=== PATIENT | female | born 2000 ===

== ENCOUNTER 2022-08-13 06:03 | Inpatient (IN) ==
[2022-08-13] MEDS ORDERED: FAMOTIDINE 20 MG/2 ML VIAL IV ONE (06:15)
[2022-08-13] MEDS ORDERED: miSOPROStoL 200 MCG TABLET RECTAL PRN (06:15)
[2022-08-13] MEDS ORDERED: OXYTOCIN/LR 20 UNIT/1,000 ML BAG IV ONE ×3 (06:15→18:45)
[2022-08-13] MEDS ORDERED: CITRIC ACID/SODIUM CITRATE 30 ML UDCUP PO ONE (06:15)
[2022-08-13] MEDS ORDERED: CARBOPROST TROMETHAMINE 250 MCG/ML AMP IM PRN (06:15)
[2022-08-13] MEDS ORDERED: TRANEXAMIC ACID 1,000 MG in SODIUM CHLORIDE 0.9% 100 ML IV PRN (06:15)
[2022-08-13] MEDS ORDERED: METHYLERGONOVINE 0.2 MG/1 ML AMP IM PRN (06:15)
[2022-08-13] MEDS ORDERED: OXYTOCIN/LR 30 UNIT/1,000 ML BAG IV ONE ×2 (06:15→10:11)
[2022-08-13] MEDS ORDERED: OXYTOCIN 10 UNIT/ML VIAL IM ONE (06:15)
[2022-08-13] MEDS ORDERED: LACTATED RINGERS 1,000 ML IV SCH ×2 (06:30→10:00)
[2022-08-13 06:45] LABS: Basophils % 0.2 % (0.0-0.8); Eosinophils % 0.1 % (0.00-10.9); Hematocrit 31.7 VOL% (35.7-47.0); Hemoglobin 10.7 GM/DL (12.0-16.0); Immature Granulocytes % 2.1 %; Immature Granulocytes Absolute 0.27 #; Lymphocytes # 2.2 10*3/uL (1.4-4.0); Lymphocytes % 17.4 % (21.3-54.2); Mean Corpuscular HGB Conc 33.8 GM/DL (32-36); Mean Corpuscular Volume 92.4 FL (87-102); Mean Platelet Volume 10.8 FL (9.6-12.0); Monocytes # 0.9 10*3/uL (0.11-0.8); Monocytes % 7.3 % (1.7-12.7); NRBC # 0.02 10*3/uL; Neutrophils % 72.9 % (38.7-73.9); Platelet Count 282 T/CUMM (130-400); Red Blood Count 3.43 MC/CUMM (3.8-5.5); Red Cell Distribution Width 13.3 % (9.3-17.3); White Blood Count 12.7 T/CUMM (4-12)
[2022-08-13 06:58] LABS: Alanine Aminotransferase 39 U/L (13-56); Albumin 2.5 G/DL (3.4-5.0); Alkaline Phosphatase 188 U/L (45-117); Aspartate Amino Transferase 58 U/L (0-37); Bilirubin,Total < 0.39 MG/DL (0.20-1.00); Blood Urea Nitrogen 11 MG/DL (7-18); Calcium 8.4 MG/DL (8.5-10.1); Carbon Dioxide 17 MMOL/L (21-32); Chloride 112 MMOL/L (98-107); Glucose 97 MG/DL (74-106); Osmolality,Calculated 275.5 MOS/KG (273-304); Potassium 4.1 MMOL/L (3.5-5.1); Sodium 139 MMOL/L (136-145); Total Protein 6.9 G/DL (6.4-8.2)
[2022-08-13] MEDS ORDERED: TRANEXAMIC ACID 1,000 MG/10 ML VIAL ONE (07:05)
[2022-08-13] MEDS ORDERED: miSOPROStoL 200 MCG TABLET ONE (07:05)
[2022-08-13] MEDS ORDERED: CARBOPROST TROMETHAMINE 250 MCG/ML AMP IM ONE (07:06)
[2022-08-13] MEDS ORDERED: METHYLERGONOVINE 0.2 MG/1 ML AMP ONE (07:06)
[2022-08-13] MEDS ORDERED: SODIUM CHLORIDE 0.9% 0 ML IV ONE (07:06)
[2022-08-13] MEDS ORDERED: INFLUENZA VIRUS VACCINE 0.5 ML SYRINGE IM ONE ×2 (07:10→07:30)
[2022-08-13] MEDS ORDERED: ACETAMINOPHEN INJ 1,000 MG/100 ML VIAL IV ONE (07:11)
[2022-08-13] MEDS ORDERED: ONDANSETRON 4 MG/2 ML VIAL ONE (07:11)
[2022-08-13] MEDS ORDERED: buprenorphine HCL 0.3 MG/ML VIAL ONE (07:11)
[2022-08-13] MEDS ORDERED: KETOROLAC 30 MG/1 ML VIAL ONE (07:11)
[2022-08-13] MEDS ORDERED: DEXAMETHASONE 4 MG/1 ML VIAL ONE ×3 (07:13→09:29)
[2022-08-13] MEDS ORDERED: ceFAZolin 3,000 MG in SYRINGE 1 EACH IV ONE (07:30)
[2022-08-13] MEDS ORDERED: LACTATED RINGERS 1,000 ML IV ONE (09:30)
[2022-08-13 09:38] LABS: Glucose,Urine (UA) Negative (Negative); Mucus,Urine Occasional /LPF (Occasional); Protein,Urine Trace mg/dL (Negative); RBC,Urine <1 /HPF (0-4); Squamous Epithelial Cell,Urine Occasional /HPF (0-10); Urine Appearance Clear (Clear); Urine Color Yellow (Yellow)
[2022-08-13 09:39] LABS: Bilirubin,Urine Negative (Negative); Blood, Urine Negative (Negative); Ketones,Urine Negative (Negative); Nitrite,Urine Negative (Negative); Urine Urobilinogen 0.2 eU/dL (<2.0)
[2022-08-13 09:42] LABS: Cord Venous Blood PCO2 46.7 MMHG; Cord Venous Blood PO2 41.2
[2022-08-13 09:48] LABS: Cord Arterial Blood HCO3 18.1 MMOL/L
[2022-08-13] MEDS ORDERED: RHO(D) IMMUNE GLOBULIN 300 MCG SYRINGE IM ONE (09:49)
[2022-08-13] MEDS ORDERED: IBUPROFEN 800 MG TABLET PO PRN (09:49)
[2022-08-13] MEDS ORDERED: MAGNESIUM HYDROXIDE SUSP 30 ML UDCUP PO PRN (09:49)
[2022-08-13] MEDS ORDERED: ACETAMINOPHEN 325 MG TABLET PO PRN (09:49)
[2022-08-13] MEDS ORDERED: ONDANSETRON 4 MG/2 ML VIAL IV PRN (09:49)
[2022-08-13 09:51] LABS: Cord Venous Blood HCO3 18.9 MMOL/L; Cord Venous Blood PCO2 46.1 MMHG; Cord Venous Blood PO2 41.1
[2022-08-13 13:10] LABS: Basophils % 0.2 % (0.0-0.8); Hematocrit 28.4 VOL% (35.7-47.0); Hemoglobin 9.4 GM/DL (12.0-16.0); Immature Granulocytes % 1.7 %; Lymphocytes # 1.9 10*3/uL (1.4-4.0); Lymphocytes % 11.1 % (21.3-54.2); Mean Corpuscular HGB Conc 33.1 GM/DL (32-36); Mean Corpuscular Volume 91.9 FL (87-102); Mean Platelet Volume 10.6 FL (9.6-12.0); Monocytes # 0.7 10*3/uL (0.11-0.8); Monocytes % 4.1 % (1.7-12.7); Neutrophils % 82.9 % (38.7-73.9); Platelet Count 263 T/CUMM (130-400); Red Blood Count 3.09 MC/CUMM (3.8-5.5); Red Cell Distribution Width 13.5 % (9.3-17.3); White Blood Count 17.2 T/CUMM (4-12)
[2022-08-13] MEDS: METOCLOPRAMIDE 10 MG TABLET PO SCH ×2 (17:08→23:04)
[2022-08-13] MEDS: KETOROLAC 30 MG/1 ML VIAL IV SCH ×2 (17:08→23:05)
[2022-08-13] MEDS: ACETAMINOPHEN 500 MG TABLET PO SCH ×2 (17:08→23:04)
[2022-08-13] MEDS: DOCUSATE SODIUM 100 MG CAPSULE PO SCH (21:20)
[2022-08-13 23:01] LABS: Basophils % 0.2 % (0.0-0.8); Hematocrit 23.4 VOL% (35.7-47.0); Hemoglobin 7.7 GM/DL (12.0-16.0); Immature Granulocytes % 1.3 %; Immature Granulocytes Absolute 0.17 #; Lymphocytes # 1.9 10*3/uL (1.4-4.0); Lymphocytes % 14.4 % (21.3-54.2); Mean Corpuscular HGB Conc 32.9 GM/DL (32-36); Mean Corpuscular Volume 92.1 FL (87-102); Monocytes # 1.1 10*3/uL (0.11-0.8); Monocytes % 8.3 % (1.7-12.7); Neutrophils % 75.8 % (38.7-73.9); Platelet Count 258 T/CUMM (130-400); Red Blood Count 2.54 MC/CUMM (3.8-5.5); Red Cell Distribution Width 13.5 % (9.3-17.3); White Blood Count 13.3 T/CUMM (4-12)
[2022-08-14] MEDS ORDERED: SODIUM CHLORIDE 0.9% 1,000 ML IV PRN ×3 (00:48→10:18)
[2022-08-14] MEDS: METOCLOPRAMIDE 10 MG TABLET PO SCH ×3 (04:43→20:58)
[2022-08-14] MEDS: ACETAMINOPHEN 500 MG TABLET PO SCH (04:44)
[2022-08-14] MEDS: KETOROLAC 30 MG/1 ML VIAL IV SCH (04:45)
[2022-08-14] MEDS ORDERED: KETOROLAC 30 MG/1 ML VIAL IV SCH (05:00)
[2022-08-14] MEDS ORDERED: ACETAMINOPHEN 500 MG TABLET PO SCH (05:00)
[2022-08-14 05:59] LABS: Basophils % 0.2 % (0.0-0.8); Eosinophils % 0.1 % (0.00-10.9); Hematocrit 24.4 VOL% (35.7-47.0); Hemoglobin 7.9 GM/DL (12.0-16.0); Immature Granulocytes % 1.2 %; Immature Granulocytes Absolute 0.16 #; Lymphocytes # 2.5 10*3/uL (1.4-4.0); Lymphocytes % 19.4 % (21.3-54.2); Mean Corpuscular HGB Conc 32.4 GM/DL (32-36); Mean Corpuscular Volume 92.4 FL (87-102); Mean Platelet Volume 10.6 FL (9.6-12.0); Monocytes # 1.1 10*3/uL (0.11-0.8); Monocytes % 8.4 % (1.7-12.7); NRBC # 0.03 10*3/uL; Neutrophils % 70.7 % (38.7-73.9); Platelet Count 213 T/CUMM (130-400); Red Blood Count 2.64 MC/CUMM (3.8-5.5); Red Cell Distribution Width 13.6 % (9.3-17.3); White Blood Count 12.8 T/CUMM (4-12)
[2022-08-14] MEDS: DOCUSATE SODIUM 100 MG CAPSULE PO SCH ×2 (08:27→20:57)
[2022-08-14] MEDS: MULTIVITAMIN (PRENATAL) TABLET PO SCH (08:27)
[2022-08-14] MEDS: SIMETHICONE CHEW 80 MG TABLET PO PRN (08:27)
[2022-08-15 05:43] LABS: Basophils % 0.2 % (0.0-0.8); Eosinophils % 0.3 % (0.00-10.9); Hematocrit 27.5 VOL% (35.7-47.0); Hemoglobin 9.2 GM/DL (12.0-16.0); Immature Granulocytes % 2.2 %; Immature Granulocytes Absolute 0.28 #; Lymphocytes # 2.7 10*3/uL (1.4-4.0); Lymphocytes % 20.7 % (21.3-54.2); Mean Corpuscular HGB Conc 33.5 GM/DL (32-36); Mean Corpuscular Volume 93.2 FL (87-102); Monocytes % 7.9 % (1.7-12.7); NRBC # 0.06 10*3/uL; Neutrophils % 68.7 % (38.7-73.9); Platelet Count 210 T/CUMM (130-400); Red Blood Count 2.95 MC/CUMM (3.8-5.5); White Blood Count 12.8 T/CUMM (4-12)
[2022-08-15] MEDS: METOCLOPRAMIDE 10 MG TABLET PO SCH (05:55)
[2022-08-15 07:00] VITALS: BP 132/72
[2022-08-15] MEDS: SIMETHICONE CHEW 80 MG TABLET PO PRN (07:00)
[2022-08-15] MEDS: DOCUSATE SODIUM 100 MG CAPSULE PO SCH (08:42)
[2022-08-15] MEDS: MULTIVITAMIN (PRENATAL) TABLET PO SCH (08:42)
[2022-08-15] MEDS ORDERED: INFLUENZA VIRUS VACCINE 0.5 ML SYRINGE IM ONE (15:14)
[2022-08-15] MEDS ORDERED: DIPH/TET/ACEL PERT BOOSTER VACCINE 0.5 ML VIAL IM ONE (15:15)
== END 2022-08-15 16:00 | disposition home or self-care (01) | DRG 540 ==
LOC: N.LD 06:03 → N.OB 12:02
PROVIDERS: ADMIT Obstetrics & Gynecology; ATTEND Obstetrics & Gynecology
PROC: LDCSECT (ICD-10-PCS; 2022-08-13 07:30)